=== PATIENT | male | born 1960 | race Caucasian/White ===

== ENCOUNTER → 2019-05-30 | Outpatient (CLI) | payer BC ==
[2018-08-27 06:28] VITALS: BP 171/88
[~2019-05-30] MED LIST: MECLIZINE PO; ZANTAC150 M1 PO; ZOFRAN ODT4 MG PO
[2019-05-30 11:55] LABS: BASO # 0.1 (0.02-0.10); EOS # 0.2 (0.04-0.40); EOS % 2.6 % (0.0-4.0); HEMATOCRIT 45.1 % (42.0-52.0); HEMOGLOBIN 14.5 g/dL (13.5-18.0); LYMPH# 2.5 (1.50-4.00); MEAN CELL VOLUME 91 fl (78-100); MEAN CORPUSCULAR HEMOGLOBIN 29 pg (27-31); MEAN CORPUSCULAR HGB CONC 32 g/dL (33-37); MEAN PLATELET VOLUME 9.6 fl (7.4-10.4); MONO # 0.8 (0.20-0.80); NEU # 5.3 (1.40-6.50); PLATELET COUNT 341 K/mm3 (130-400); RED BLOOD COUNT 4.95 M/mm3 (4.20-5.60); RED CELL DISTRIBUTION WIDTH 14.8 % (11.5-14.5); WHITE BLOOD COUNT 8.9 K/mm3 (4.8-10.8)
[2019-05-30 12:07] LABS: POTASSIUM 4.3 mmol/L (3.5-5.1); SODIUM 142 mmol/L (136-145)
[2019-05-30 12:08] LABS: CALCIUM 9.4 mg/dL (8.3-10.5)
[2019-05-30 12:09] LABS: GLUCOSE 99 mg/dL (75-110)
[2019-05-30 12:10] LABS: CARBON DIOXIDE 27 mmol/L (22-29)
[2019-05-30 13:02] LABS: TROPONIN-I < 0.03 ng/mL (<0.030)
== END ==
LOC: LAB 11:38
PROVIDERS: Family Medicine
DX: Z12.5 Encounter for screening for malignant neoplasm of prostate (principal); R06.02 Shortness of breath

== ENCOUNTER → 2019-11-01 | Outpatient (CLI) | payer OTHER ==
[2018-08-27 06:28] VITALS: BP 171/88
[2019-11-01 16:57] LABS: BASO # 0.1 (0.02-0.10); EOS # 0.3 (0.04-0.40); EOS % 2.3 % (0.0-4.0); HEMATOCRIT 44.5 % (42.0-52.0); HEMOGLOBIN 14.5 g/dL (13.5-18.0); MEAN CELL VOLUME 90 fl (78-100); MEAN CORPUSCULAR HEMOGLOBIN 29 pg (27-31); MEAN CORPUSCULAR HGB CONC 33 g/dL (33-37); MEAN PLATELET VOLUME 9.6 fl (7.4-10.4); MONO # 0.9 (0.20-0.80); NEU # 8.2 (1.40-6.50); PLATELET COUNT 321 K/mm3 (130-400); RED BLOOD COUNT 4.96 M/mm3 (4.20-5.60); RED CELL DISTRIBUTION WIDTH 14.6 % (11.5-14.5); WHITE BLOOD COUNT 11.5 K/mm3 (4.8-10.8)
[2019-11-01 17:01] LABS: ALBUMIN 4.4 g/dL (3.5-5.0)
[2019-11-01 17:03] LABS: CALCIUM 9.9 mg/dL (8.3-10.5)
[2019-11-01 17:04] LABS: TOTAL PROTEIN 7.3 g/dL (6.4-8.3)
[2019-11-01 17:06] LABS: TOTAL BILIRUBIN 1.1 mg/dL (0.2-1.2)
== END ==
LOC: RAD 16:14
PROVIDERS: Nurse Practitioner
DX: R60.0 Localized edema (principal); L53.9 Erythematous condition, unspecified

== ENCOUNTER 2021-02-09 18:20 | Emergency (ER) | payer OTHER ==
[2021-02-09 19:11] LABS: BASO # 0.06 (0.02-0.10); EOS # 0.31 (0.04-0.40); EOS % 2.5 % (0.0-4.0); HEMATOCRIT 46.9 % (42.0-52.0); HEMOGLOBIN 15.1 g/dL (13.5-18.0); LYMPH# 2.27 (1.50-4.00); MEAN CELL VOLUME 91 fl (78-100); MEAN CORPUSCULAR HEMOGLOBIN 29 pg (27-31); MEAN CORPUSCULAR HGB CONC 32 g/dL (33-37); MEAN PLATELET VOLUME 9.5 fl (7.4-10.4); MONO # 0.78 (0.20-0.80); NEU # 9.03 (1.40-6.50); PLATELET COUNT 343 K/mm3 (130-400); RED BLOOD COUNT 5.15 M/mm3 (4.20-5.60); RED CELL DISTRIBUTION WIDTH 13.7 % (11.5-14.5); WHITE BLOOD COUNT 12.5 K/mm3 (4.8-10.8)
[2021-02-09 19:22] LABS: ALBUMIN 4.2 g/dL (3.4-4.8)
[2021-02-09 19:24] LABS: CALCIUM 9.9 mg/dL (8.3-10.5)
[2021-02-09 19:25] LABS: TOTAL PROTEIN 7.5 g/dL (6.2-8.1)
[2021-02-09 19:27] LABS: TOTAL BILIRUBIN 0.7 mg/dL (0.2-1.2)
[2021-02-10] MEDS ORDERED: CEFDINIR300 MG PO (00:01)
[2021-02-10] MEDS ORDERED: MECLIZINE PO (00:01)
[2021-02-10] MEDS ORDERED: ZOFRAN ODT4 MG PO (00:01)
[2021-02-10 00:14] VITALS: BP 159/99
== END 2021-02-10 00:14 | disposition home or self-care (01) ==
LOC: ED 18:20
PROVIDERS: Physician Assistant
DX: R42 Dizziness and giddiness (principal); I10 Essential (primary) hypertension; R11.0 Nausea; Z88.0 Allergy status to penicillin
CPT/HCPCS: J2405; J2550; J3360; J7030

== ENCOUNTER 2022-05-16 17:58 | Emergency (ER) | payer OTHER ==
[~2022-05-16] VITALS: Wt 134.1 kg
[~2022-05-16 17:58] MED LIST changes: +CEFDINIR300 MG PO
[2022-05-16] MEDS ORDERED: RT ALBUTEROL CC18 GM IH (18:43)
[2022-05-16 18:48] LABS: BASO # 0.06 K/mm3 (0.02-0.10); EOS # 0.36 K/mm3 (0.04-0.40); HEMATOCRIT 44.5 % (42.0-52.0); HEMOGLOBIN 14.3 g/dL (13.5-18.0); LYMPH# 2.71 K/mm3 (1.50-4.00); MEAN CELL VOLUME 92 fl (78-100); MEAN CORPUSCULAR HEMOGLOBIN 30 pg (27-31); MEAN CORPUSCULAR HGB CONC 32 g/dL (33-37); MEAN PLATELET VOLUME 9.6 fl (7.4-10.4); MONO # 0.71 K/mm3 (0.20-0.80); NEU # 5.25 K/mm3 (1.40-6.50); PLATELET COUNT 329 K/mm3 (130-400); RED BLOOD COUNT 4.84 M/mm3 (4.20-5.60); WHITE BLOOD COUNT 9.1 K/mm3 (4.8-10.8)
[2022-05-16 18:59] LABS: ALBUMIN 4.2 g/dL (3.4-4.8)
[2022-05-16 19:00] LABS: POTASSIUM 3.8 mmol/L (3.5-5.1); SODIUM 144 mmol/L (136-145)
[2022-05-16 19:01] LABS: CALCIUM 9.4 mg/dL (8.3-10.5)
[2022-05-16 19:02] LABS: GLUCOSE 88 mg/dL (75-110); TOTAL PROTEIN 7.1 g/dL (6.2-8.1)
[2022-05-16 19:03] LABS: CARBON DIOXIDE 26 mmol/L (23-31)
[2022-05-16 19:04] LABS: TOTAL BILIRUBIN 0.6 mg/dL (0.2-1.2)
[2022-05-16 19:07] LABS: AST-SGOT 24 U/L (5-34)
[2022-05-16 19:09] LABS: ALT/SGPT 28 U/L (0-55)
[2022-05-16 19:15] LABS: TROPONIN-I < 0.030 ng/mL (<0.030)
[2022-05-16 21:32] VITALS: BP 153/94
== END 2022-05-16 21:41 | disposition home or self-care (01) ==
LOC: ED 17:58
PROVIDERS: Physician Assistant
DX: R07.89 Other chest pain (principal); R06.02 Shortness of breath

== ENCOUNTER → 2024-05-23 | Outpatient (CLI) | payer OTHER ==
[~2024-05-23] MED LIST changes: +RT ALBUTEROL CC18 GM IH
== END ==
LOC: RAD 15:57
DX: M51.369 Other intervertebral disc degeneration, lumbar region without mention of lumbar back pain or lower extremity pain (principal); M43.16 Spondylolisthesis, lumbar region